=== PATIENT | male | born 1980 | race Two or more races ===

== ENCOUNTER 2023-03-28 09:19 | Emergency (ER) | payer OTHER, SELFPAY ==
[2023-03-28] VITALS (27 sets, daily range): BP systolic 113–166; BP diastolic 58–96; PULSE 111–140; RESP 20; TEMP 36.8; O2SAT 95–99
[2023-03-28 09:47] LABS: Lactate* 1.2 mmol/L (0.5-1.9)
[2023-03-28 09:50] LABS: Basophils Percent Auto 0.1 % (0.0-3.0); Eosinophils Percent Auto 0.1 % (0.0-7.0); Hematocrit 45.3 % (37.0-53.0); Hemoglobin* 15.4 gm/dL (13.5-17.5); Immature Granulocytes Pct Auto 0.3 %; Mean Corpuscular HGB Conc 34 gm/dL (32-36); Mean Corpuscular Hemoglobin 27 pg (26-34); Mean Corpuscular Volume 80 fL (80-100); Monocytes Percent Auto 5.1 % (0.0-11.0); Neutrophils Percent Auto 90.4 % (42.0-72.0); Platelet Count* 299 K/uL (140-440); RDW Coefficient of Variation % 12.1 % (11.5-15.5); Red Blood Count 5.67 m/uL (4.30-5.90); White Blood Count* 14.83 K/uL (4.50-11.00)
[2023-03-28] MEDS: ONDANSETRON 2 MG/ML inj 4 MG IVP (09:51)
[2023-03-28] MEDS: 0.9 % SODIUM CHLORIDE 1000 ml 1,000 ML IV ×2 (09:51→12:45)
[2023-03-28 09:56] LABS: Slide Review Reflex No
[2023-03-28 10:09] LABS: Chloride* 101 mmol/L (96-114); Potassium* 4.4 mmol/L (3.6-5.1); Sodium* 135 mmol/L (135-149)
[2023-03-28 10:12] LABS: Anion Gap 13 mEq/L (7-15); Blood Urea Nitrogen* 21 mg/dL (5-24); Carbon Dioxide* 21 mmol/L (20-32); Creatinine* 0.9 mg/dL (0.5-1.5); Estimated Glomerular Filt Rate 109 ml/min; Glucose* 144 mg/dL (60-115)
[2023-03-28 10:13] LABS: Calcium* 9.4 mg/dL (8.4-10.6)
--- NOTE | 2023-03-28 10:16 | ED.GENADULT ---
HPI - General Adult General Date Seen: 03/28/23 Chief complaint: Nausea/Vomiting Stated complaint: vomiting Time Seen by Provider: 03/28/23 09:34 History of Present Illness HPI narrative: This is a 42-year-old male presenting to the ER today with his with concern for vomiting and diarrhea and abdominal pain that began yesterday and persisted throughout the night. His daughter was sick 2 days ago with a self-limited vomiting and diarrhea illness. He wonders if he might have picked up ?a bug? from his daughter. His symptoms began yesterday with nausea and vomiting. He has had many episodes of vomiting and diarrhea. Initially liquidy emesis and then dry heaving. No bloody emesis. He has had many episodes of diarrhea. Initially somewhat junky and watery. No mucousy or bloody stools. He is not having any fever. He does have some abdominal pain which he thinks might be pulled muscles from retching. Urination has been decreased today. He is feeling weak. His heart rate is elevated. He wonders if he is dehydrated. No other recent travel or suspicious food or sick contacts. He also has a history of elevated heart rate and is on metoprolol for that. His primary care provider prescribes him metoprolol. He is not sure what his normal resting heart rate is. He was recently diagnosed with Graves disease and hyperthyroidism. He actually saw an brassiere cup mold cutter 3 days ago and was put on methimazole. He took his medications yesterday but probably threw them up. He has not been able to take any meds today. He says brassiere cup mold cutter are numb on the methimazole and they will ?see how his thyroid responds? and then decide if he needs radioactive iodine therapy. Related Data Home Medications Medication Instructions Recorded Confirmed lisinopril 10 1 tab PO DAILY 03/28/23 03/28/23 mg-hydrochlorothiazide 12.5 mg tablet metformin 500 mg 24 hr 500 mg PO DAILY 03/28/23 03/28/23 tablet,extended release (gastric retention) (Glumetza) methimazole 10 mg tablet 10 mg PO DAILY 03/28/23 03/28/23 metoprolol succinate 50 mg 50 mg PO DAILY 03/28/23 03/28/23 tablet,extended release 24 hr pantoprazole 40 mg tablet,delayed 40 mg PO DAILY 03/28/23 03/28/23 release (Protonix) Allergies Allergy/AdvReac Type Severity Reaction Status Date / Time No Known Drug Allergies Allergy Verified 03/28/23 09:30 [facility] Social History Smoking Status: Never smoker How often do you have a drink containing alcohol: monthly or less How often do you have six or more drinks on one occasion: Never AUDIT-C Alcohol total score: 1 Non-prescribed substance use: denies use Exam Narrative: Exam Narrative: Constitutional: Appears well-developed and well-nourished. Alert. Conversant. Non toxic. HENT: Head: Atraumatic. Nose: Nose normal. Mouth/Throat: Oral mucosa is clear but dry, not desiccated a cracked. no trismus. Pharynx normal. Tonsils symmetric. No tonsillar enlargement, erythema, or exudate. Eyes: Conjunctivae normal. EOM normal. Pupils equal, round, and reactive to light. No scleral icterus. Neck: Normal range of motion. Neck supple. No tracheal deviation present. No thyromegaly. Cardiovascular: Tachycardic, sinus 133 on the monitor. Heart rate was 140 at triage., regular rhythm. No gallop. No friction rub. No murmur heard. Symmetric radial artery pulses Pulmonary/Chest: Effort normal. No stridor. No respiratory distress. No wheezes. No rales. No rhonchi . No tenderness. Abdominal: Soft. Bowel sounds normal. No distension. No mass. No tenderness. No rebound. No guarding. No CVA tenderness. Musculoskeletal: RUE: Normal range of motion. No tenderness. No deformity LUE: Normal range of motion. No tenderness. No deformity RLE: Normal range of motion. No edema. No tenderness. No deformity LLE: Normal range of motion. No edema. No tenderness. No deformity Neurological: Alert and oriented to person, place, and time. Normal strength. CN II-VII intact. No sensory deficit. GCS eye subscore is 4. GCS verbal subscore is 5. GCS motor subscore is 6. Normal coordination Skin: Skin is warm and dry. No rash noted. No pallor. Normal capillary refill. Psychiatric: Normal mood. Normal affect. Const: Vital Signs, click to edit/add: Vital Signs - 24 hr 03/28/23 09:24 03/28/23 09:51 03/28/23 10:00 Temperature 98.3 F Pulse Rate 128 H 130 H Pulse Rate [Pulse Oximeter] 140 H Respiratory Rate 20 Blood Pressure Blood Pressure [Ri ght Upper Arm] 166/96 H Pulse Oximetry 98 96 96 Oxygen Delivery Me thod Room Air 03/28/23 10:02 03/28/23 10:03 03/28/23 10:15 Temperature Pulse Rate 126 H 126 H 126 H Pulse Rate [Pulse Oximeter] Respiratory Rate Blood Pressure 139/88 Blood Pressure [Ri ght Upper Arm] Pulse Oximetry 96 97 96 Oxygen Delivery Me thod 03/28/23 10:30 03/28/23 10:45 03/28/23 11:00 Temperature Pulse Rate 123 H 113 H 117 H Pulse Rate [Pulse Oximeter] Respiratory Rate Blood Pressure Blood Pressure [Ri ght Upper Arm] Pulse Oximetry 97 96 96 Oxygen Delivery Me thod 03/28/23 11:02 03/28/23 11:03 03/28/23 11:15 Temperature Pulse Rate 114 H 116 H 116 H Pulse Rate [Pulse Oximeter] Respiratory Rate Blood Pressure 148/94 H Blood Pressure [Ri ght Upper Arm] Pulse Oximetry 98 97 95 Oxygen Delivery Me thod 03/28/23 11:30 03/28/23 11:45 03/28/23 12:00 Temperature Pulse Rate 117 H 117 H 116 H Pulse Rate [Pulse Oximeter] Respiratory Rate Blood Pressure Blood Pressure [Ri ght Upper Arm] Pulse Oximetry 99 97 98 Oxygen Delivery Me thod 03/28/23 12:02 03/28/23 12:15 03/28/23 12:35 Temperature Pulse Rate 118 H 118 H 123 H Pulse Rate [Pulse Oximeter] Respiratory Rate Blood Pressure 140/76 H Blood Pressure [Ri ght Upper Arm] Pulse Oximetry 96 99 96 Oxygen Delivery Me thod 03/28/23 12:45 03/28/23 13:00 03/28/23 13:02 Temperature Pulse Rate 120 H 118 H 120 H Pulse Rate [Pulse Oximeter] Respiratory Rate Blood Pressure 113/72 Blood Pressure [Ri ght Upper Arm] Pulse Oximetry 98 97 97 Oxygen Delivery Me thod 03/28/23 13:15 03/28/23 13:30 03/28/23 13:38 Temperature Pulse Rate 116 H 121 H 117 H Pulse Rate [Pulse Oximeter] Respiratory Rate Blood Pressure 117/58 L Blood Pressure [Ri ght Upper Arm] Pulse Oximetry 98 97 97 Oxygen Delivery Me thod 03/28/23 13:45 03/28/23 14:00 03/28/23 14:02 Temperature Pulse Rate 113 H 113 H 111 H Pulse Rate [Pulse Oximeter] Respiratory Rate Blood Pressure 121/69 Blood Pressure [Ri ght Upper Arm] Pulse Oximetry 95 96 98 Oxygen Delivery Me thod Course Course ED Course: Recheck-Zofran administered. Fluids infusing. Heart rate down to 126. Reevaluation(s) Reevaluation #1: Recheck-rate heart rate down to 120, finishing 1 L fluid Reevaluation #2: Recheck-heart rate under 113. His finished 1 L fluid. Nausea improved after Zofran. Tolerating sips of water Reevaluation #3: Recheck-feeling much better after water and crackers. Has finished 2 L of fluids. Heart rate still in the 1 teens. Blood pressure stable. Feels well. No fever Vital Signs Vital signs: Initial Vital Signs Temperature 98.3 F 03/28/23 09:24 Temperature Source Temporal Artery Scan 03/28/23 09:24 Pulse Rate 140 H 03/28/23 09:24 Respiratory Rate 20 03/28/23 09:24 Blood Pressure 166/96 H 03/28/23 09:24 Blood Pressure Mean 119 H 03/28/23 09:24 Blood Pressure Position Sitting 03/28/23 09:24 Pulse Oximetry 98 03/28/23 09:24 Oxygen Delivery Method Room Air 03/28/23 09:24 Vital Signs Temperature 98.3 F 03/28/23 09:24 Pulse Rate 140 H 03/28/23 09:24 Respiratory Rate 20 03/28/23 09:24 Blood Pressure 166/96 H 03/28/23 09:24 Pulse Oximetry 98 03/28/23 09:24 Oxygen Delivery Method Room Air 03/28/23 09:24 Temperature 98.3 F 03/28/23 09:24 Pulse Rate 111 H 03/28/23 14:02 Respiratory Rate 20 03/28/23 09:24 Blood Pressure 121/69 03/28/23 14:02 Pulse Oximetry 98 03/28/23 14:02 Oxygen Delivery Method Room Air 03/28/23 09:24 Medications Administered Medications: Discontinued Medications Generic Name Dose Route Start Last Admin Trade Name Freq PRN Reason Stop Dose Admin Sodium Chloride 1,000 mls @ 1,000 mls/hr 03/28/23 09:45 03/28/23 10:52 0.9 % Sodium Chloride 1000 Ml IV 03/28/23 10:44 Infused .Q1H MAXIMUS Infusion Sodium Chloride 1,000 mls @ 1,000 mls/hr 03/28/23 12:00 03/28/23 13:45 0.9 % Sodium Chloride 1000 Ml IV 03/28/23 12:59 Infused .Q1H MAXIMUS Infusion Ondansetron HCl 4 mg 03/28/23 09:35 03/28/23 09:51 Ondansetron 2 Mg/Ml Inj IVP 03/28/23 09:36 4 mg ONCE ONE Administration Medical Decision Making MDM Narrative Medical decision making narrative: This patient presents with vomiting and diarrhea that began yesterday and persisted throughout the night with many episodes of vomiting and many episodes of watery, nonbloody diarrhea. The patient's symptoms and exam could be consistent with a viral GI infection. His daughter was sick with similar symptoms 2 days ago. There is no high fever, severe pain, bilious or bloody emesis, blood or mucous in the stool, severe abdominal pain, or other concerning signs for a bacterial infection. No recent travel or high risk exposure for baceraial pathogen. No recent antibiotics or risk factors for C. diff. he does have significant sinus tachycardia but is not febrile. White count minimally elevated 14. I don't see any evidence for appendicitis, bowel obstruction, abscess, bowel perforation, or other surgical emergency. Labs show no concerning electrolyte disturbance or renal failure. After meds given the patient is feeling better. At this point, the patient is non-septic appearing and well hydrated. Heart rate improved with IV fluids but is still in the 1 teens. He does note that he has had trouble with racing heart rate lately and is related to his hyperthyroidism. He is supposed to be on metoprolol but could not take it because of his vomiting and just started methimazole 3 days ago. At this point I do not see any signs of evolving thyroid storm requiring hospitalization. He feels much better after the IV fluids and can take his meds at home. I think the patient can be managed as an outpatient. We have discussed oral rehydration strategies. They understand and can perform the needed interventions at home. I have provided a prescription for antiemetics to facilitate oral hydration ([employer]ym[employer] Zofran ODT ). We have discussed the signs and symptoms of worsening dehydration. They understand the need for immediate reevaluation if any of these symptoms occur. They are also directed to obtain close outpatient follow up within 1-2 days. Lab Data Labs: Lab Results 03/28/23 Range/Units 09:38 WBC 14.83 H (4.50-11.00) K/uL RBC 5.67 (4.30-5.90) m/uL Hgb 15.4 (13.5-17.5) gm/dL Hct 45.3 (37.0-53.0) % MCV 80 (80-100) fL MCH 27 (26-34) pg MCHC 34 (32-36) gm/dL RDW Coeff of Vijay 12.1 (11.5-15.5) % Plt Count 299 (140-440) K/uL Neut % (Auto) 90.4 H (42.0-72.0) % Lymph % (Auto) 4.0 L (20-44) % Johnston % (Auto) 5.1 (0.0-11.0) % Eos % (Auto) 0.1 (0.0-7.0) % Baso % (Auto) 0.1 (0.0-3.0) % Neut # (Auto) 13.40 H (1.7-7.0) K/uL Lymph # (Auto) 0.60 L (0.90-2.90) K/uL Johnston # (Auto) 0.80 (0.00-0.90) K/UL Eos # (Auto) 0.00 (0.00-0.50) K/uL Baso # (Auto) 0.00 (0.00-0.30) K/uL Abs Immat Gran (auto) 0.00 (0.00-0.30) K/uL Imm/Tot Granulo (auto) 0.3 % Sodium 135 (135-149) mmol/L Potassium 4.4 (3.6-5.1) mmol/L Chloride 101 (96-114) mmol/L Carbon Dioxide 21 (20-32) mmol/L Anion Gap 13 (7-15) mEq/L BUN 21 (5-24) mg/dL Creatinine 0.9 (0.5-1.5) mg/dL Estimated GFR 109 ml/min Glucose 144 H (60-115) mg/dL Lactate 1.2 (0.5-1.9) mmol/L Calcium 9.4 (8.4-10.6) mg/dL ECG Data Attestation: I personally reviewed and interpreted this ECG as follows: Interpretation: Sinus tachycardia. Rate 128 SD 138 QRS axis normal axis. No pathologic Q-waves. ST segment/T wave: No ST segment elevation or depression QTc: 473 Discharge Plan Discharge Clinical Impression: Nausea vomiting and diarrhea, Acute dehydration, Sinus tachycardia Patient Disposition: Home, Self-Care Condition: Stable Instructions: Dehydration (ED), Acute Nausea and Vomiting (DC) Additional Instructions: Please drink plenty of fluids and solid food when you feel ready. Take your regular medications. Please return to the ER if you have uncontrolled nausea and vomiting, uncontrolled diarrhea, worsening dehydration, weakness, dizziness, rapid heart rate, high fever, worsening abdominal pain, bloody or mucousy stool, or if you have any concerns. We suspect that your nausea and vomiting and diarrhea are probably due to a viral illness and should get better within the next 24 hours. If your not completely improved after 24 hours, please see your doctor or come back to the ER. Prescriptions: No Action lisinopril-hydrochlorothiazide 10-12.5 mg tablet 1 tab PO DAILY pantoprazole [Protonix] 40 mg tablet,delayed release (DR/EC) 40 mg PO DAILY metformin [Glumetza] 500 mg tablet,ER casi.retention 24 hr 500 mg PO DAILY methimazole 10 mg tablet 10 mg PO DAILY metoprolol succinate 50 mg tablet extended release 24 hr 50 mg PO DAILY Follow Up/Referrals: Bernabe Marion MD [Primary Care Provider] - Stand Alone Forms: [employer] Info Instructions
== END 2023-03-28 15:02 | disposition home or self-care (01) ==
PROVIDERS: Emergency Provider Emergency Medicine; PCP Family Medicine
DX: R11.2 Nausea with vomiting, unspecified (principal); E86.0 Dehydration; R00.0 Tachycardia, unspecified
CPT/HCPCS: 36415; 80048; 83605; 85025; 96361; 96374; 99284; J2405; J7030